=== PATIENT | male | born 1955 | race Caucasian/White ===

== ENCOUNTER 2023-02-04 07:34 | Inpatient (IN) | payer MEDICARE, SELFPAY ==
[2023-02-04] VITALS (36 sets, daily range): BP systolic 96–168; BP diastolic 48–106; PULSE 62–120; RESP 8–24; TEMP 35.8–37.1; O2SAT 86–100; BMI 24.3
--- NOTE | 2023-02-04 07:44 | W.ED.GENADLT ---
HPI - General Adult General: Chief complaint: Altered Mental Status Stated complaint: HYPOGLYCEMIA Time Seen by Provider: 02/04/23 07:40 Source: patient Mode of arrival: ambulatory History of Present Illness: 67-year-old male presents emergency room via EMS hypoglycemic. He was in the hospital recently at [facility] was discharged he was discharged on insulin. It appears that he was given 10 times his usual 7030 dose last night and given 50 units instead of 5. He is also hypoxic on arrival. He is poorly arousable. After his blood sugars reported he was able to answer question more he denies chest pain. Denies abdominal pain no vomiting or diarrhea. Sister is with him denies any chest pain complaints last evening he has not had a productive cough but he does seem to be short of breath at home. Onset (ago): minute(s) Relieving factors: other (Glucose) Exacerbating factors: none Associated symptoms: Reports short of breath; Deny chest pain, confusion, cough, diaphoresis, decreased appetite, dyspnea, fevers/chills, headache(s), malaise, nausea, rash, palpitations, seizures, syncope, vomiting or weakness Review of Systems Const: Denies: fever(s), chills, fatigue, malaise or diaphoresis ENMT: Denies: throat pain, ear or mastoid pain, nasal discharge or nasal congestion Card: Denies: chest pain, palpitations or syncope Resp: Denies: dyspnea GI: Denies: abdominal pain, nausea or vomiting : Denies: flank pain, dysuria, urinary frequency or urinary urgency Skin/Breast: Denies: rash Neuro: Denies: headache(s) or confusion Physical Exam Const: GENERAL APPEARANCE: cooperative ORIENTATION/CONSCIOUSNESS: Yes confused HENMT: COMMON NORMALS: normocephalic, atraumatic and hearing grossly normal bilaterally HEAD & SCALP: normocephalic and atraumatic Resp: COMMON NORMALS: normal respiratory effort, No retractions and No use of accessory muscles AUSCULTATION: crackles (Bases) Laterality: bilateral Cardio: COMMON NORMALS: regular rate, regular rhythm and No murmurs present (Cardio) RATE: regular rate RHYTHM: regular rhythm GI: COMMON NORMALS: Soft to palpation and No hepatosplenomegaly present AUSCULTATION: Yes normoactive bowel sounds PALPATION: Yes Soft to palpation, No Tenderness to palpation present (GI), No Guarding due to palpation present (GI) and Yes No hepatosplenomegaly present Extremity: COMMON NORMALS: normal to inspection, capillary refill normal, no clubbing, cyanosis or edema, no calf tenderness and no pedal edema Skin: COMMON NORMALS: no rashes or lesions noted GENERAL SKIN EXAM: no rashes or lesions noted Course Vital Signs: Vital signs: Vital Signs Pulse Rate 74 02/04/23 09:44 Respiratory Rate 14 02/04/23 09:44 Blood Pressure 135/58 02/04/23 09:44 Pulse Oximetry 98 02/04/23 09:44 Oxygen Delivery Me thod Room Air 02/04/23 09:44 Oxygen Flow Rate 4 02/04/23 07:37 MDM - General Adult Medical Decision Making Chest x-ray does not show any pneumonia. Reviewing old records from [place] he did have an decreased ejection fraction of 40 to 45%. He is requiring oxygen in the emergency room as well as D10 by drip to maintain his blood sugar. We will admit discussed with patient and his sister at the bedside. Discussed with hospitalist orders written Medical Records I reviewed the patient's medical records. Lab Data I reviewed the patient's lab results. 02/04/23 08:05 02/04/23 08:05 Radiology Impressions Chest X-Ray 02/04/23 08:08 IMPRESSION: No acute findings. Laboratory Results WBC 12.3 10^3/uL (4.0-10.0) H 02/04/23 08:05 RBC 5.10 10^6/uL (4.1-5.3) 02/04/23 08:05 Hgb 14.1 g/dL (11.7-16.6) 02/04/23 08:05 Hct 44.0 % (42.0-52.0) 02/04/23 08:05 MCV 86.3 fl (80-94) 02/04/23 08:05 MCH 27.6 pg (28.0-34.0) L 02/04/23 08:05 MCHC 32.0 g/dL (30.0-36.0) 02/04/23 08:05 RDW 14.6 % (12.1-15.1) 02/04/23 08:05 Plt Count 285 10^3/cmm (130-400) 02/04/23 08:05 MPV 10.8 fL (7.4-10.4) H 02/04/23 08:05 Neut % (Auto) 82.1 % 02/04/23 08:05 Lymph % (Auto) 11.5 % 02/04/23 08:05 [place] % (Auto) 5.1 % 02/04/23 08:05 Eos % (Auto) 0.4 % 02/04/23 08:05 Baso % (Auto) 0.2 % 02/04/23 08:05 Neut # (Auto) 10.08 10^3/uL (1.8-7.7) H 02/04/23 08:05 Lymph # (Auto) 1.4 10^3/uL (0.8-4.8) 02/04/23 08:05 [place] # (Auto) 0.6 10^3/uL (0.2-0.9) 02/04/23 08:05 Eos # (Auto) 0.1 10^3/uL (0.0-0.8) 02/04/23 08:05 Baso # (Auto) 0.0 10^3/uL (0.0-0.1) 02/04/23 08:05 Nucleated RBC % (auto) 0 % 02/04/23 08:05 Nucleated RBCs # 0.0 /100WBC 02/04/23 08:05 Specimen Type Arterial 02/04/23 07:49 Sample Site Radial, left 02/04/23 07:49 ABG pH 7.44 (7.35-7.45) 02/04/23 07:49 ABG pCO2 41.9 mmHg (35-45) 02/04/23 07:49 ABG pO2 50.9 mmHg (80.0-100.0) L 02/04/23 07:49 ABG HCO3 28.2 mmol/L (22-26) H 02/04/23 07:49 ABG O2 Saturation 87.7 02/04/23 07:49 ABG Base Excess 3.5 mmol/L (-2.0-2.0) H 02/04/23 07:49 Tommy Test Pos 02/04/23 07:49 A-a O2 Gradient 6.0 mmHg (5-10) 02/04/23 07:49 Hematocrit 42.6 % (42-52) 02/04/23 07:49 Hgb O2 Saturation 86.2 % (95-100) L 02/04/23 07:49 Carboxyhemoglobin 1.3 %THgb (0.4-20.1) 02/04/23 07:49 Methemoglobin 0.4 % (0.4-1.5) 02/04/23 07:49 Total Hemoglobin 13.9 g/dL (14-18) L 02/04/23 07:49 Sodium 139.0 mmol/L (131-143) 02/04/23 07:49 Potassium 2.7 mmol/L (3.5-5.0) L 02/04/23 07:49 Glucose 124.0 mg/dL (70-115) H 02/04/23 07:49 Ionized Calcium 1.2 mmol/L (1.1-1.4) 02/04/23 07:49 O2 Delivery Device Nc 02/04/23 07:49 O2 Liters/Min 4.0 % 02/04/23 07:49 [place] Cutting Machine Operator ID Cak 02/04/23 07:49 Sodium 141 mmol/L (136-145) 02/04/23 08:05 Potassium 3.0 mmol/L (3.5-5.1) L 02/04/23 08:05 Chloride 103 mmol/L (98-107) 02/04/23 08:05 Carbon Dioxide 27 mmol/L (22-29) 02/04/23 08:05 Anion Gap 14.0 (5-19) 02/04/23 08:05 BUN 15 mg/dL (8-23) 02/04/23 08:05 Creatinine 0.9 mg/dL (0.7-1.2) 02/04/23 08:05 GFR Calculation 84.4 mL/min (90-130) L 02/04/23 08:05 Glucose 103 mg/dL (65-115) 02/04/23 08:05 POC Glucose 110 mg/dL (70-110) 02/04/23 09:13 Calculated Osmolality 293 mOsm/kg (285-295) 02/04/23 08:05 Calcium 8.0 mg/dL (8.5-10.5) L 02/04/23 08:05 Magnesium 1.6 mg/dL (1.7-2.3) L 02/04/23 08:05 Creatine Kinase 53 U/L (39-308) 02/04/23 08:05 Troponin T Baseline 55 ng/L (0-15) H 02/04/23 08:05 NT-Pro-B Natriuret Pep 5123 pg/mL (0-125) H 02/04/23 08:05 Lipase 43 U/L (13-60) 02/04/23 08:05 Serum Ketones Negative (Negative) 02/04/23 08:05 Discharge Plan Discharge Patient Disposition: Admitted As Inpatient Admit Provider: Mihir Hui Clinical Impression: Hypoglycemia, Congestive heart failure Condition: Stable Coding Level of Care Code ED Manager Latin for Nicole Lopez
--- NOTE | 2023-02-04 07:55 | ECG_ITS ---
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 Measurements Intervals [place] Rate: 61 P: 79 OK: 148 QRS: 65 QRSD: 117 T: 125 QT: 443 QTc: 447 Interpretive Statements SINUS RHYTHM MODERATE INTRAVENTRICULAR CONDUCTION DELAY [110+ ms QRS DURATION] NONSPECIFIC ST & T-WAVE ABNORMALITY No previous ECG available for comparison Electronically Signed On 02-04-2023 16:38:54 CDT by Thee Jeffery M.D. [id number]
[2023-02-04 07:59] LABS: Glucose Point of Care 116 mg/dL (70-110)
[2023-02-04 07:59] LABS: Glucose Point of Care 149 mg/dL (70-110)
[2023-02-04 08:00] LABS: ABG PCO2 41.9 mmHg (35-45); ABG PH Result 7.44 (7.35-7.45); Arterial Blood Gas Hematocrit 42.6 % (42-52); Base Excess ABG 3.5 mmol/L (-2.0-2.0); Blood Gas Allen Test Pos; Blood Gas Operator Identificat CAK; Blood Gas Sample Site Radial, left; Blood Gas Sample Type Arterial; Carboxyhemoglobin 1.3 %THgb (0.4-20.1); HCO3 ABG 28.2 mmol/L (22-26); HGB O2 Sat 86.2 % (95-100); Ionized Calcium Level - ABG 1.2 mmol/L (1.1-1.4); Methemoglobin 0.4 % (0.4-1.5); Oxygen Device NC; Oxygen Saturation ABG 87.7; PO2 ABG 50.9 mmHg (80.0-100.0); Potassium Level - ABG 2.7 mmol/L (3.5-5.0); Total Hemoglobin 13.9 g/dL (14-18)
--- NOTE | 2023-02-04 08:08 | XRR_ITS ---
PROCEDURE INFORMATION: Exam: XR Chest Exam date and time: 02/04/2023 8:43 AM Age: 67 years old Clinical indication: Cough and dyspnea; Additional info: Dyspnea/cough TECHNIQUE: Imaging protocol: Radiologic exam of the chest. Views: 1 view. Total images: 1 COMPARISON: No relevant prior studies available. FINDINGS: Lungs: Unremarkable. No consolidation. Pleural spaces: Unremarkable. No pleural effusion. No pneumothorax. Heart/Mediastinum: Unremarkable. No cardiomegaly. Bones/joints: Unremarkable. XR/XR chest 1V portable [id number] IMPRESSION: No acute findings.
[2023-02-04] MEDS: dextrose 10% 250 ML 50 ML IV (08:17)
[2023-02-04 08:25] LABS: Basophils % 0.2 %; Eosinophils # 0.1 10^3/uL (0.0-0.8); Eosinophils % 0.4 %; Hemoglobin 14.1 g/dL (11.7-16.6); Lymphocytes # 1.4 10^3/uL (0.8-4.8); Lymphocytes % 11.5 %; Mean Corpuscular Hemoglobin 27.6 pg (28.0-34.0); Mean Corpuscular Volume 86.3 fl (80-94); Mean Platelet Volume 10.8 fL (7.4-10.4); Monocytes # 0.6 10^3/uL (0.2-0.9); Monocytes % 5.1 %; Neutrophils # 10.08 10^3/uL (1.8-7.7); Neutrophils % 82.1 %; Nucleated Red Blood Cells % 0 %; Platelet Count 285 10^3/cmm (130-400); Red Cell Distribution Width 14.6 % (12.1-15.1); White Blood Count 12.3 10^3/uL (4.0-10.0)
[2023-02-04 08:32] LABS: Ketone (Acetest) Serum Negative (Negative)
[2023-02-04 08:44] LABS: Troponin(5th) Baseline 55 ng/L (0-15)
[2023-02-04 08:51] LABS: Blood Urea Nitrogen 15 mg/dL (8-23); Carbon Dioxide 27 mmol/L (22-29); Chloride 103 mmol/L (98-107); Creatine Phosphokinase 53 U/L (39-308); Glomerular Filtration Rate 84.4 mL/min (90-130); Glucose 103 mg/dL (65-115); Lipase 43 U/L (13-60); Magnesium 1.6 mg/dL (1.7-2.3); NT Pro B Type Natriuretic Pept 5123 pg/mL (0-125); Osmolality Calculated 293 mOsm/kg (285-295); Sodium 141 mmol/L (136-145)
[2023-02-04 09:17] LABS: Glucose Point of Care 110 mg/dL (70-110)
--- NOTE | 2023-02-04 09:28 | CTR_ITS ---
PROCEDURE INFORMATION: Exam: CTA Chest With Contrast Exam date and time: 02/04/2023 10:26 AM Age: 67 years old Clinical indication: Dyspnea; Additional info: Hypoxia/dyspnea TECHNIQUE: Imaging protocol: Computed tomographic angiography of the chest with contrast. 3D rendering (Not supervised by radiologist): MIP and/or 3D reconstructed images were created by the technologist. Total images: 1349 Radiation optimization: All CT scans at this facility use at least one of these dose optimization techniques: automated exposure control; mA and/or kV adjustment per patient size (includes targeted exams where dose is matched to clinical indication); or iterative reconstruction. Contrast material: OMNI 350; Contrast volume: 79 ml; Contrast route: INTRAVENOUS (IV); REPORTING DATA: Count of CT and Cardiac NM exams in prior 12 months: This patient has received 0 known CTs and 0 known cardiac nuclear medicine studies in the 12 months prior to the current study. COMPARISON: CR (CHEST, ) 02/04/2023 8:43 AM RADIATION DOSE METRICS: Total DLP (mGy-cm): 403.62 FINDINGS: Pulmonary arteries: Pulmonary artery evaluation of good technical quality with no pulmonary artery embolism identified. Aorta: Unremarkable. No aortic aneurysm. No aortic dissection. Other arteries: Mild atherosclerotic disease is evident. Lungs: Mild centrilobular emphysematous changes are present. Mild peribronchial thickening throughout with mild debris/mucous plugging in the right lower lobe. Compressive atelectasis of the lungs. Right lower lobe tree in bud and centrilobular nodular opacities, which generally indicate pneumonia/aspiration and/or possibly atypical pneumonia. Benign granulomatous disease of the lung is noted. Pleural spaces: Small bilateral pleural effusions are present. Heart: Unremarkable. No cardiomegaly. No pericardial effusion. Lymph nodes: Unremarkable. No enlarged lymph nodes. Gallbladder and bile ducts: Prior cholecystectomy noted. Bones/joints: Unremarkable. No acute fracture. Soft tissues: Unremarkable. Other findings: Fleischner follow up recommendations for incidental nodules are not indicated. Follow up per patient's medical condition. CT/CT angio chest PE protcl [id number] IMPRESSION: 1. No pulmonary artery embolism identified. 2. Mild centrilobular emphysematous changes are present. 3. Mild peribronchial thickening throughout with mild debris/mucous plugging in the right lower lobe. 4. Small bilateral pleural effusions with compressive atelectasis. 5. Right lower lobe tree in bud and centrilobular nodular opacities, which generally indicate pneumonia/aspiration and/or possibly atypical pneumonia. COMMENTS: In the absence of a history or active diagnosis of lung cancer, it is recommended that this patient with emphysema be evaluated for enrollment in a low dose CT lung cancer screening program.
--- NOTE | 2023-02-04 09:55 | ECG_ITS ---
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 Measurements Intervals [place] Rate: 67 P: 68 MT: 150 QRS: 70 QRSD: 110 T: 112 QT: 410 QTc: 435 Interpretive Statements SINUS RHYTHM NONSPECIFIC T-WAVE ABNORMALITY Compared to ECG 02/04/2023 08:03:01 Intraventricular conduction delay no longer present T-wave abnormality still present Electronically Signed On 02-04-2023 17:02:00 CDT by Thee Jeffery M.D. [id number]
[2023-02-04] MEDS: FUROsemide 10 mg/mL SDV 4mL 40 MG IVP (10:03)
[2023-02-04] MEDS: diphenhydrAMINE 50 mg/mL SDV 1mL IVP (10:05)
[2023-02-04] MEDS: iohexol 350 mg/mL 500 mL Btl (per mL) IV (10:33)
[2023-02-04 10:45] LABS: Troponin 5 2HR 53.82 ng/L (0-15)
[2023-02-04 10:47] LABS: Glucose Point of Care 137 mg/dL (70-110)
[2023-02-04 11:01] LABS: Troponin 5 2HR Delta -1.18 ABS# (0-10)
[2023-02-04 11:37] LABS: Adenovirus Not Detected (NOT DETECT); Chlamydia Pneumoniae Not Detected (NOT DETECT); Coronavirus 229E,HKU1,NL63,OC4 Not Detected (NOT DETECT); Human Metapneumovirus Not Detected (NOT DETECT); Human Rhinovirus/Enterovirus Not Detected (NOT DETECT); Influenza A Not Detected (NOT DETECT); Influenza A H1 Not Detected (NOT DETECT); Influenza A H1-2009 Not Detected (NOT DETECT); Influenza A H3 Not Detected (NOT DETECT); Influenza B Not Detected (NOT DETECT); Mycoplasma Pneumoniae Not Detected (NOT DETECT); Parainfluenza Virus Type 1 Not Detected (NOT DETECT); Parainfluenza Virus Type 2 Not Detected (NOT DETECT); Parainfluenza Virus Type 3 Not Detected (NOT DETECT); Parainfluenza Virus Type 4 Not Detected (NOT DETECT); Respiratory Syncytial Virus A Not Detected (NOT DETECT); Respiratory Syncytial Virus B Not Detected (NOT DETECT); SARS-COV-2 Not Detected (NOT DETECT)
[2023-02-04 11:40] LABS: Glucose Point of Care 126 mg/dL (70-110)
[2023-02-04 12:04] LABS: Urine Appearance Cloudy (CLEAR); Urine Color Yellow (Yellow); pH Urine 5 (5-7)
[2023-02-04 12:05] LABS: Add Urine Culture? Yes; Add Urine Microscopic? YES; Bacteria Urine 1+ /hpf; Bilirubin Urine Neg (Negative); Blood Urine 2+ (Negative); Glucose Urine UA 1+ (Normal); Hyaline Casts Urine 0-4 /lpf; Ketones Urine Negative (Negative); Leukocyte Esterase Urine Negative (Negative); Nitrate Urine Negative (Negative); Protein Urine 1+ (Negative); Urobilinogen Urine Norm (Negative)
--- NOTE | 2023-02-04 13:55 | ECG_ITS ---
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 Measurements Intervals [place] Rate: 81 P: 65 HI: 145 QRS: 35 QRSD: 105 T: 115 QT: 398 QTc: 465 Interpretive Statements SINUS RHYTHM MODERATE ST DEPRESSION [0.05+ mV ST DEPRESSION] ABNORMAL QRS-T ANGLE [QRS-T AXIS DIFFERENCE > 60] Compared to ECG 02/04/2023 09:55:13 ST (T wave) deviation now present T-wave abnormality no longer present Electronically Signed On 02-04-2023 17:02:27 CDT by Thee Jeffery M.D. [id number]
[2023-02-04] MEDS: enoxaparin 40 mg/0.4 mL Syringe SUBCUT (14:01)
[2023-02-04 14:08] LABS: Glucose Point of Care 279 mg/dL (70-110)
[2023-02-04 14:43] LABS: Troponin 5 6HR 46.54 ng/L (0-15)
--- NOTE | 2023-02-04 16:17 | PM.HP ---
Providers/Chief Complaint Admitting Physician: Mihir Hui DO Primary Care Provider: Ascencion Wiggins Jr, MD Chief Complaint: HYPOGLYCEMIA History of Present Illness Ascencion Gaitan is a 67 year old male with PMH of uncontrolled ID-TIIDM, HFrEF who presented to ER with confusion, lethargy and hypoxia. Patient was recently hospitalized at [facility], for DKA. After this was managed and stabilized, he was discharged home on insulin. Apparently sometime last night he received about 10 times his normal dose of insulin. He received 50 units of long-acting insulin instead of 5. He had presented this morning with severe lethargy, confusion and hypoxia. His sugars in the ER were noted to be in the 20s. His blood pressures were stable at time of presentation and his oxygen saturation was 86%. In the ER he was started on D10 drip, and supplemental oxygen. His oxygen quickly improved to well within normal range. His labs did show an elevated white blood cell count to 12.3. His potassium was 3.0, and his magnesium was a little low at 1.6. EKGs and troponins were negative for SRIDEVI. He did have a positive D-dimer, and a CTA was obtained and did not demonstrate any acute PE, but did suggest pneumonia. UA was obtained and showed high amount of yeast, some blood and 1+ bacteria. This was sent for culture. His sugars improved with initiation of D10. He was transferred to the ICU for monitoring. Review of Systems General: Reports: 10 or more systems reviewed and unremarkable except in HPI and below Const: Denies: fever(s), chills or body aches Eyes: Reports: blurry vision; Denies: change in vision ENMT: Denies: throat pain Card: Denies: chest pain or palpitations Resp: Denies: dyspnea or productive cough GI: Denies: abdominal pain, nausea or vomiting : Denies: flank pain or difficulty urinating Musc: Denies: neck pain or back pain Skin/Breast: Denies: rash Neuro: Reports: weakness in extremities, confusion and behavioral changes; Denies: headache(s) Psych: Denies: anxiety or depression Medications/Allergies Home Medications Medication Instructions Recorded Confirmed Last Taken Type aspirin 81 mg chewable tablet 81 mg PO DAILY 02/04/23 02/04/23 02/03/23 History atorvastatin 40 mg tablet 40 mg PO DAILY 02/04/23 02/04/23 02/03/23 History carvedilol 12.5 mg tablet 12.5 mg PO BID 02/04/23 02/04/23 02/03/23 History citalopram 40 mg tablet 40 mg PO DAILY 02/04/23 02/04/23 02/03/23 History doxepin 10 mg capsule 10 mg PO BEDTIME 02/04/23 02/04/23 12/20/22 History ergocalciferol (vitamin D2) 1,250 1,250 mcg PO Q7D 02/04/23 02/04/23 02/03/23 History mcg (50,000 unit) capsule (Vitamin D2) fludrocortisone 0.1 mg tablet 0.05 mg PO DAILY 02/04/23 02/04/23 02/03/23 History insulin NPH-regular 70-30 U-100 5 unit SUBCUT BID 02/04/23 02/04/23 02/03/23 20:30 History insulin 100 unit/mL subcutaneous 50 UNITS pen (Novolin 70-30 FlexPen U-100 Insulin) insulin glargine 100 unit/mL (3 10 unit SUBCUT BEDTIME 02/04/23 02/04/23 02/03/23 History mL) subcutaneous pen (Lantus Solostar U-100 Insulin) liraglutide 0.6 mg/0.1 mL (18 mg/3 0.6 mg SUBCUT DAILY 02/04/23 02/04/23 02/03/23 History mL) subcutaneous pen injector (Victoza 2-Antonio) lorazepam 1 mg tablet 1 mg PO BID 02/04/23 02/04/23 02/03/23 History losartan 25 mg tablet 25 mg PO DAILY 02/04/23 02/04/23 02/03/23 History omeprazole 40 mg capsule,delayed 40 mg PO DAILY 02/04/23 02/04/23 Unknown History release pantoprazole 40 mg tablet,delayed 40 mg PO DAILY 02/04/23 02/04/23 02/03/23 History release Allergies Allergy/AdvReac Type Severity Reaction Status Date / Time Iodinated Contrast Media Allergy Unknown Unknown Verified 02/04/23 10:04 Penicillins Allergy Unknown Unknown Verified 02/04/23 10:04 PFSH Acute PFSH: Medical History (Updated 02/04/23 @ 16:32 by Mihir Hui DO) Diabetes mellitus, type II Family History (Updated 02/04/23 @ 12:13 by Tish Washington, RN) Mother Cancer Diabetes Lung disease Father Cancer Diabetes Lung disease Brother Cancer Diabetes CAD (coronary artery disease) Lung disease Sister Diabetes Lung disease Social History (Updated 02/04/23 @ 12:24 by Tish Washington, MARANDA) Smoking and tobacco status: former smoker Quit status (tobacco): has quit using tobacco Year quit tobacco: December 2022 Alcohol intake: never Substance/Drug Use: current Substance/Drug use frequency: few times a week Substance/Drug use type: Marijuana Other substance/drug use details: it helps with pain in feet Lives independently: Yes (daughter lives on the same property) Housing: Manufactured/Mobile home Marital status: Number of children: 2 Number of grandchildren: 2 Highest education level completed: Some College, No Degree service: No Current occupational status: retired Pets and animals: Yes (2 kittens) History of recent travel: No Vitals/I&O/Wt Last Vital Signs Temp 96.5 F L 02/04/23 11:30 Pulse 80 02/04/23 14:00 Resp 20 H 02/04/23 14:00 BP 127/69 02/04/23 14:00 Pulse Ox 94 02/04/23 14:00 O2 Del Method Room Air 02/04/23 14:00 O2 Flow Rate 4 02/04/23 07:37 02/04/23 02/04/23 02/04/23 06:59 14:59 22:59 Intake Total 490 / 490 Output Total 300 / 300 Balance 190 / 190 Physical Exam Narrative: General: Cooperative patient in no apparent distress. Well developed. A/O x 2. HEENT: Normocephalic, Atraumatic. External ears normal. Nasal passages patent without drainage. MMM. Heart: RRR. Resp: LCTA. No respiratory distress, no use of accessory muscles. Abd: Soft, non-tender. Non-distended. Extremities: No edema. Skin: No rash or lesions on exposed areas. Data 02/04/23 08:05 02/04/23 08:05 Micro: Microbiology 02/04/23 09:16 Blood Culture - Preliminary Blood SPECIMEN COLLECTED 02/04/23 08:36 Blood Culture - Preliminary Blood SPECIMEN COLLECTED A&P Assessment and plan (1) Hypoglycemia: (2) Congestive heart failure: (3) Candiduria: (4) Atypical pneumonia: (5) Hypokalemia: (6) Hypomagnesemia: (7) Diabetes mellitus, type II: Plan Ascencion Gaitan is a 67 year old male with PMH of uncontrolled ID-TIIDM, HFrEF who presented to ER with AMS, hypoxia and hypoglycemia. Admit to ICU for inpatient management. Sugars have improved to 120+ range. We can stop D10 at this time. His symptoms have improved as well. He is alert and oriented to person and place, but not time. We will transition to sliding scale insulin for his diabetes. We will continue q2h Accu-Cheks. Potassium was down to 3.0. Magnesium at 1.6. Will replace and recheck in the a.m. We will start Diflucan for candiduria. Urine cultures are pending. Will hold on Levofloxacin for now as patient does not have other signs and symptoms of pneumonia. He did have findings suggestive on CT scan. We will keep a low threshold to add antibiotics if needed. Can consider echocardiogram to evaluate heart function. He did have bilateral pleural effusions and an elevated BNP. He did receive Lasix in the ER, and he has had good urine output since this time. Lovenox for DVT prophylaxis. Protonix for GI prophylaxis. Telemetry. O2 protocol, RAAT Code Status: Full IVF: None DVT PPx: Lovenox GI PPx: Protonix ABx: Diflucan Diet: Carb consistent Discharge plan: TBD Attestations Medical Necessity Statement*: Will need inpatient monitoring for hypoglycemic episode resulting in altered mental status, electrolyte replacement, and cultures. Coding Level of Care Code Acute Code for Chg Fwd Moderate MDM includes number and complexity of problems actively addressed during encounter, amount and/or complexity of data reviewed/ordered and described risk of complication, morbidity or mortality of management as documented Diagnoses Hypoglycemia E16.2 Congestive heart failure I50.9 Candiduria B37.49 Atypical pneumonia J18.9 Hypokalemia E87.6 Hypomagnesemia E83.42 Diabetes mellitus, type II E11.9
[2023-02-04 16:43] LABS: Glucose Point of Care 302 mg/dL (70-110)
[2023-02-04] MEDS: potassium chloride ER 20 mEq Tablet 40 MEQ PO (17:42)
[2023-02-04] MEDS: insulin lispro 100 unit/1 mL SUBCUT ×2 (17:42→20:29)
[2023-02-04 18:42] LABS: Glucose Point of Care 439 mg/dL (70-110)
[2023-02-04 20:08] LABS: Glucose Point of Care 288 mg/dL (70-110)
[2023-02-04 22:02] LABS: Glucose Point of Care 157 mg/dL (70-110)
[2023-02-04 23:53] LABS: Glucose Point of Care 53 mg/dL (70-110)
[2023-02-05] VITALS (26 sets, daily range): BP systolic 105–202; BP diastolic 42–72; PULSE 47–100; RESP 13–26; TEMP 36.4–37; O2SAT 94–100
[2023-02-05] MEDS: dextrose 10% 250 ML 50 ML IV (00:02)
[2023-02-05 00:25] LABS: Glucose Point of Care 177 mg/dL (70-110)
[2023-02-05 01:23] LABS: Glucose Point of Care 191 mg/dL (70-110)
[2023-02-05 02:26] LABS: Glucose Point of Care 208 mg/dL (70-110)
[2023-02-05 04:35] LABS: Basophils % 0.1 %; Eosinophils % 0.4 %; Hematocrit 39.1 % (42.0-52.0); Hemoglobin 12.9 g/dL (11.7-16.6); Lymphocytes % 18.3 %; Mean Corpuscular Hemoglobin 28.4 pg (28.0-34.0); Mean Corpuscular Volume 86.1 fl (80-94); Mean Platelet Volume 10.5 fL (7.4-10.4); Monocytes # 1.2 10^3/uL (0.2-0.9); Monocytes % 10.9 %; Neutrophils # 7.58 10^3/uL (1.8-7.7); Neutrophils % 69.6 %; Nucleated Red Blood Cells % 0 %; Platelet Count 288 10^3/cmm (130-400); Red Blood Count 4.54 10^6/uL (4.1-5.3); Red Cell Distribution Width 14.8 % (12.1-15.1); White Blood Count 10.9 10^3/uL (4.0-10.0)
[2023-02-05 04:45] LABS: Glucose Point of Care 213 mg/dL (70-110)
[2023-02-05 04:51] LABS: Alanine Aminotransferase 15 U/L (0-41); Albumin Level 2.1 g/dL (3.5-5.2); Alkaline Phosphatase 147 U/L (40-130); Anion Gap 14.2 (5-19); Aspartate Amino Transferase 20 U/L (0-40); Blood Urea Nitrogen 16 mg/dL (8-23); Calcium 7.6 mg/dL (8.5-10.5); Carbon Dioxide 22 mmol/L (22-29); Chloride 103 mmol/L (98-107); Globulin 2.4 g/dL (1.3-4.6); Glomerular Filtration Rate 74.8 mL/min (90-130); Glucose 196 mg/dL (65-115); Magnesium 1.3 mg/dL (1.7-2.3); Osmolality Calculated 289 mOsm/kg (285-295); Potassium 3.2 mmol/L (3.5-5.1); Sodium 136 mmol/L (136-145); Total Bilirubin 0.2 mg/dL (0.15-1.2); Total Protein 4.5 g/dL (6.6-8.7)
[2023-02-05 04:55] LABS: Procalcitonin 0.06 ng/mL (0-0.5)
[2023-02-05 06:01] LABS: Glucose Point of Care 276 mg/dL (70-110)
[2023-02-05 07:07] LABS: Glucose Point of Care 305 mg/dL (70-110)
[2023-02-05] MEDS: magnesium lactate 84 mg Tablet PO (08:50)
[2023-02-05] MEDS: potassium chloride ER 20 mEq Tablet PO (08:50)
[2023-02-05] MEDS: pantoprazole 40 mg SDV IVP (08:50)
[2023-02-05] MEDS: insulin lispro 100 unit/1 mL SUBCUT ×2 (08:50→11:59)
[2023-02-05] MEDS: dextrose 10% 1,000 ML 50 ML IV (08:51)
[2023-02-05] MEDS: pneumococcal (23 valent) SDV 0.5 mL IM (08:51)
[2023-02-05] MEDS: cefTRIAXone 1,000 MG in sodium chloride 0.9% (plus) 50 ML 100 MG IV (10:20)
--- NOTE | 2023-02-05 10:23 | PM.DCS ---
Discharge Providers Date of Admission: 02/04/23 09:59 Date of Discharge: February 05, 2023 Attending Provider at Admission: Mihir Hui DO Attending Provider at Discharge: Kylie Pardo MD Primary Care Provider: Ascencion Wiggins Jr, MD Diagnoses at Discharge Discharge Diagnosis (1) Hypoglycemia: Status: Acute (2) Congestive heart failure: Status: Acute (3) Candiduria: Status: Acute (4) Atypical pneumonia: Status: Acute (5) Hypokalemia: Status: Acute (6) Hypomagnesemia: Status: Acute (7) Diabetes mellitus, type II: Status: Acute Reason for Visit Reason for Visit: HYPOGLYCEMIA Hospital Course Hospital Course 81-year-old male who was recently discharged from the hospital after management of DKA, he was supposed to get 10 units of Lantus at home however accidentally took 50 units and he has been taking short acting insulin as well and skipped his meal presented with hypoglycemia which improved with IV dextrose. Patient remained hemodynamically stable, mentation was appropriate. He was diagnosed with pneumonia for which we will give him levofloxacin 5-day regimen, he is not requiring oxygen he has been afebrile. Patient does not endorse any coughing or productive cough. I have asked patient to watch his fasting glucose and reduce the dose of Lantus if needed if it is above 130 in the morning then he probably need to increase his Lantus dose but for now patient is stating that he will take care of his insulin regimen carefully. He received a dose of Diflucan for yeast infection as well. We will give him magnesium supplements as well Hemoglobin A1c was not checked on admission I have requested at the time of discharge Sugar this morning was around 300 and I have discontinued IV dextrose, given patient NovoLog 10 units, will monitor his sugar until noon and then discharge him, extensive counseling took place today before discharge, patient is eager to return home Physical Exam Narrative: Awake and alert Tolerating diet GCS 15 Normal neurological exam Currently on room air Pleasant and cooperative Discharge Data Studies Completed and Pending Completed Studies During Hospitalization Category Date Time Status CT angio chest PE protcl [id number] Stat Cat Scan 02/04/23 09:28 Completed XR chest 1V portable [id number] Stat Exams 02/04/23 08:08 Completed Pending at discharge Category Date Time Status Blood Culture Stat Lab 02/04/23 09:16 Results Hemoglobin A1C Routine Lab 02/05/23 09:02 Ordered Urine Culture Stat Lab 02/04/23 10:20 Received Radiology Impressions Chest X-Ray 02/04/23 08:08 IMPRESSION: No acute findings. Chest CTA 02/04/23 09:28 IMPRESSION: 1. No pulmonary artery embolism identified. 2. Mild centrilobular emphysematous changes are present. 3. Mild peribronchial thickening throughout with mild debris/mucous plugging in the right lower lobe. 4. Small bilateral pleural effusions with compressive atelectasis. 5. Right lower lobe tree in bud and centrilobular nodular opacities, which generally indicate pneumonia/aspiration and/or possibly atypical pneumonia. COMMENTS: In the absence of a history or active diagnosis of lung cancer, it is recommended that this patient with emphysema be evaluated for enrollment in a low dose CT lung cancer screening program. Laboratory Results WBC 10.9 10^3/uL (4.0-10.0) H 02/05/23 04:06 RBC 4.54 10^6/uL (4.1-5.3) 02/05/23 04:06 Hgb 12.9 g/dL (11.7-16.6) 02/05/23 04:06 Hct 39.1 % (42.0-52.0) L 02/05/23 04:06 MCV 86.1 fl (80-94) 02/05/23 04:06 MCH 28.4 pg (28.0-34.0) 02/05/23 04:06 MCHC 33.0 g/dL (30.0-36.0) 02/05/23 04:06 RDW 14.8 % (12.1-15.1) 02/05/23 04:06 Plt Count 288 10^3/cmm (130-400) 02/05/23 04:06 MPV 10.5 fL (7.4-10.4) H 02/05/23 04:06 Neut % (Auto) 69.6 % 02/05/23 04:06 Lymph % (Auto) 18.3 % 02/05/23 04:06 [place] % (Auto) 10.9 % 02/05/23 04:06 Eos % (Auto) 0.4 % 02/05/23 04:06 Baso % (Auto) 0.1 % 02/05/23 04:06 Neut # (Auto) 7.58 10^3/uL (1.8-7.7) 02/05/23 04:06 Lymph # (Auto) 2.0 10^3/uL (0.8-4.8) 02/05/23 04:06 [place] # (Auto) 1.2 10^3/uL (0.2-0.9) H 02/05/23 04:06 Eos # (Auto) 0.0 10^3/uL (0.0-0.8) 02/05/23 04:06 Baso # (Auto) 0.0 10^3/uL (0.0-0.1) 02/05/23 04:06 Nucleated RBC % (auto) 0 % 02/05/23 04:06 Nucleated RBCs # 0.0 /100WBC 02/05/23 04:06 Specimen Type Arterial 02/04/23 07:49 Sample Site Radial, left 02/04/23 07:49 ABG pH 7.44 (7.35-7.45) 02/04/23 07:49 ABG pCO2 41.9 mmHg (35-45) 02/04/23 07:49 ABG pO2 50.9 mmHg (80.0-100.0) L 02/04/23 07:49 ABG HCO3 28.2 mmol/L (22-26) H 02/04/23 07:49 ABG O2 Saturation 87.7 02/04/23 07:49 ABG Base Excess 3.5 mmol/L (-2.0-2.0) H 02/04/23 07:49 Tommy Test Pos 02/04/23 07:49 A-a O2 Gradient 6.0 mmHg (5-10) 02/04/23 07:49 Hematocrit 42.6 % (42-52) 02/04/23 07:49 Hgb O2 Saturation 86.2 % (95-100) L 02/04/23 07:49 Carboxyhemoglobin 1.3 %THgb (0.4-20.1) 02/04/23 07:49 Methemoglobin 0.4 % (0.4-1.5) 02/04/23 07:49 Total Hemoglobin 13.9 g/dL (14-18) L 02/04/23 07:49 Sodium 139.0 mmol/L (131-143) 02/04/23 07:49 Potassium 2.7 mmol/L (3.5-5.0) L 02/04/23 07:49 Glucose 124.0 mg/dL (70-115) H 02/04/23 07:49 Ionized Calcium 1.2 mmol/L (1.1-1.4) 02/04/23 07:49 O2 Delivery Device Nc 02/04/23 07:49 O2 Liters/Min 4.0 % 02/04/23 07:49 Chief Solution Architect ID Cak 02/04/23 07:49 Sodium 136 mmol/L (136-145) 02/05/23 04:06 Potassium 3.2 mmol/L (3.5-5.1) L 02/05/23 04:06 Chloride 103 mmol/L (98-107) 02/05/23 04:06 Carbon Dioxide 22 mmol/L (22-29) 02/05/23 04:06 Anion Gap 14.2 (5-19) 02/05/23 04:06 BUN 16 mg/dL (8-23) 02/05/23 04:06 Creatinine 1.0 mg/dL (0.7-1.2) 02/05/23 04:06 GFR Calculation 74.8 mL/min (90-130) L 02/05/23 04:06 Glucose 196 mg/dL (65-115) H 02/05/23 04:06 POC Glucose 305 mg/dL (70-110) H 02/05/23 07:04 Calculated Osmolality 289 mOsm/kg (285-295) 02/05/23 04:06 Calcium 7.6 mg/dL (8.5-10.5) L 02/05/23 04:06 Magnesium 1.3 mg/dL (1.7-2.3) L 02/05/23 04:06 Total Bilirubin 0.2 mg/dL (0.15-1.2) 02/05/23 04:06 AST 20 U/L (0-40) 02/05/23 04:06 ALT 15 U/L (0-41) 02/05/23 04:06 Alkaline Phosphatase 147 U/L (40-130) H 02/05/23 04:06 Creatine Kinase 53 U/L (39-308) 02/04/23 08:05 Troponin T Baseline 55 ng/L (0-15) H 02/04/23 08:05 Troponin T 120 Minute 53.82 ng/L (0-15) H 02/04/23 09:58 Delta Troponin T -1.18 ABS# (0-10) L 02/04/23 09:58 Troponin T Hi Sens 6Hr 46.54 ng/L (0-15) H 02/04/23 14:13 Troponin T Hi Sens 6Hr Delta -8.46 ng/L (0-12) L 02/04/23 14:13 NT-Pro-B Natriuret Pep 5123 pg/mL (0-125) H 02/04/23 08:05 Total Protein 4.5 g/dL (6.6-8.7) L 02/05/23 04:06 Albumin 2.1 g/dL (3.5-5.2) L 02/05/23 04:06 Globulin 2.4 g/dL (1.3-4.6) 02/05/23 04:06 Lipase 43 U/L (13-60) 02/04/23 08:05 Procalcitonin 0.06 ng/mL (0-0.5) 02/05/23 04:06 Urine Color Yellow (Yellow) 02/04/23 10:20 Urine Appearance Cloudy (CLEAR) A 02/04/23 10:20 Urine pH 5 (5-7) 02/04/23 10:20 Ur Specific [place] 1.010 (1.005-1.030) 02/04/23 10:20 Urine Protein 1+ (Negative) H 02/04/23 10:20 Urine Glucose (UA) 1+ (Normal) H 02/04/23 10:20 Urine Ketones Negative (Negative) 02/04/23 10:20 Urine Blood 2+ (Negative) H 02/04/23 10:20 Urine Nitrate Negative (Negative) 02/04/23 10:20 Urine Bilirubin Neg (Negative) 02/04/23 10:20 Urine Urobilinogen Norm mg/dL (Negative) 02/04/23 10:20 Ur Leukocyte Esterase Negative (Negative) 02/04/23 10:20 Urine RBC 5-10 /hpf (0-2) H 02/04/23 10:20 Urine WBC 5-10 /hpf (0-5) H 02/04/23 10:20 Ur Squamous Epith Cells None /hpf (0-5) 02/04/23 10:20 Amorphous Sediment Not Reportable 02/04/23 10:20 Urine Bacteria 1+ /hpf (NONE) H 02/04/23 10:20 Hyaline Casts 0-4 /lpf H 02/04/23 10:20 Urine Yeast 3+ /hpf H 02/04/23 10:20 Serum Ketones Negative (Negative) 02/04/23 08:05 Coronavirus 229E (PCR) Not detected (NOT DETECT) 02/04/23 09:21 SARS-CoV-2 (PCR) Not detected (NOT DETECT) 02/04/23 09:21 Vitals Last Vital Signs Temp 97.9 F 02/05/23 08:00 Pulse 78 02/05/23 08:30 Resp 20 H 02/05/23 08:30 BP 132/68 02/05/23 08:30 Pulse Ox 98 02/05/23 08:30 O2 Del Method Room Air 02/04/23 18:00 O2 Flow Rate 4 02/04/23 20:00 Discharge Plan Discharge Patient Disposition: Home Condition: Stable Prescriptions: New levofloxacin 750 mg tablet 750 mg PO DAILY 5 Days Qty: 5 0RF Continued atorvastatin 40 mg tablet 40 mg PO DAILY carvedilol 12.5 mg tablet 12.5 mg PO BID citalopram 40 mg tablet 40 mg PO DAILY doxepin 10 mg capsule 10 mg PO BEDTIME omeprazole 40 mg capsule,delayed release(DR/EC) 40 mg PO DAILY pantoprazole 40 mg tablet,delayed release (DR/EC) 40 mg PO DAILY losartan 25 mg tablet 25 mg PO DAILY aspirin 81 mg Tablet,Chewable 81 mg PO DAILY Vitamin D2 1,250 mcg (50,000 unit) Capsule 1,250 mcg PO Q7D Rx Instructions: ON FRIDAYS lorazepam 1 mg tablet 1 mg PO BID fludrocortisone 0.1 mg tablet 0.05 mg PO DAILY Novolin 70-30 FlexPen U-100 100 unit/mL (70-30) Insulin Pen 5 unit SUBCUT BID Lantus Solostar U-100 Insulin 100 unit/mL (3 mL) insulin pen 10 unit SUBCUT BEDTIME Held Victoza 2-Antonio 0.6 mg/0.1 mL (18 mg/3 mL) pen injector 0.6 mg SUBCUT DAILY Hold Instructions: Resume on 02/10/23. Discharge Orders: Discharge Order (Routine); Ordered 02/05/23 Ordered By: Kylie Pardo Patient Instructions: Hyponatremia (ED), Benzodiazepine Use Disorder (ED), Dementia (ED), Non-diabetic Hypoglycemia (ED), Hypoglycemia in a Person with Diabetes (ED), Concussion (ED), Alcohol Intoxication (ED), Subarachnoid Hemorrhage (GEN), Altered Mental Status (ED), Opioid Safety Discharge Attestations Time Spent in Discharge Care*: greater than 30 min Quality Metrics Clinical Quality Measures [ No reported AMI, CVA or VTE this stay] Coding Level of Care Code Acute Code for Chg Fwd Diagnoses Hypoglycemia E16.2 Congestive heart failure I50.9 Candiduria B37.49 Atypical pneumonia J18.9 Hypokalemia E87.6 Hypomagnesemia E83.42 Diabetes mellitus, type II E11.9
[2023-02-05 10:45] LABS: Glucose Point of Care 175 mg/dL (70-110)
[2023-02-05 10:59] LABS: Estmated Average Glucose 341; Hemoglobin A1C 13.5 % (4.0-6.0)
[2023-02-05] MEDS: enoxaparin 40 mg/0.4 mL Syringe SUBCUT (11:59)
--- NOTE | 2023-02-05 12:35 | PC.NURSE ---
Pt was taken to personal vehichle at 1220 via wheelchair with sister. All discharge went over with patient. All questions answered.
== END 2023-02-05 12:20 | disposition home or self-care (01) | DRG 917 ==
LOC: ER 08:36 → ICU 10:11
PROVIDERS: Admitting Provider Family Medicine; Emergency Provider Family Medicine; PCP Family Medicine; Visit Provider Internal Medicine
DX: T38.3X1A Poisoning by insulin and oral hypoglycemic [antidiabetic] drugs, accidental (unintentional), initial encounter (principal); J18.9 Pneumonia, unspecified organism; E11.649 Type 2 diabetes mellitus with hypoglycemia without coma; Z79.82 Long term (current) use of aspirin; Z79.4 Long term (current) use of insulin; B37.9 Candidiasis, unspecified; Z87.891 Personal history of nicotine dependence; E87.6 Hypokalemia; E83.42 Hypomagnesemia; Y92.019 Unspecified place in single-family (private) house as the place of occurrence of the external cause
CPT/HCPCS: 36415; 36416; 36600; 71045; 71275; 80048; 80051; 80053; 81001; 82009; 82330; 82550; 82805; 82962; 83036; 83690; 83735; 83880; 84145; 84484; 85025; 87040; 87086; 87106; 87635; 90471; 90732; 93005; 96372; 96374; 96375; 96376; 99285; C9113; J0696; J1200; J1650; J1815; J1940; J2930; J7799; Q9967